=== PATIENT | female | born 1980 | race Caucasian/White ===

== ENCOUNTER 2019-08-04 21:24 | Emergency (ER) | payer MEDICAID ==
[~2019-08-04] VITALS: Ht 157.5 cm; Wt 59.6 kg
--- NOTE | 2019-08-04 22:08 | NUR ---
UA OBTAINED AND TUBED TO LAB
[2019-08-04 22:15] LABS: MICROSCOPIC AUTO
[2019-08-04 22:38] LABS: CULTURE INDICATED? NO
[2019-08-04 23:35] VITALS: BP 166/88
== END 2019-08-04 23:37 | disposition home or self-care (01) ==
LOC: ED 23:03
DX: R30.0 Dysuria (principal)
CPT/HCPCS: 81001; 99283

== ENCOUNTER → 2021-03-01 | Outpatient (CLI) | payer MEDICAID | END | disposition home or self-care (01) | LOC: CFH 13:45 | PROVIDERS: ATTEND Internal Medicine Cardiovascular Disease | DX: I10 Essential (primary) hypertension (principal); R07.9 Chest pain, unspecified | CPT/HCPCS: 93306; 93356 ==